=== PATIENT | female | born 1980 | race Hispanic/Latino ===

== ENCOUNTER → 2018-03-30 | Outpatient (CLI) | payer BC ==
[~2018-03-30] VITALS: Ht 7.6 cm; Wt 110.2 kg
--- NOTE | 2018-03-30 11:36 | NUR ---
Bariatric Nutrition Consult: Visit 1/3: Pt seeking nutrition guidance for wt loss surgery to increase quality of life and increase energy levels. Pt reports no medical history however states she takes metformin- DM medication. Pt believes wt loss surgery will help her finally reach her health goal as it will force her to eat less promoting wt loss. Pt reports high sugar intake-on a daily basis. RD has emphasized the importance to begin eating less sugar in preparation to surgery. Pt did become emotional when RD encouraged her to stop eating cookies and brownies however verbalized understanding and will begin transitioning her eating habits starting with half potions of her usual sweats intake. Pt reports liking vegetables at all meals however rarely eats them as her family does not like vegetables. RD has encouraged pt to buy frozen vegetables to cook for herself while setting the example for her family to eventually eat them. 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 However pt states her daughter are asleep by 7pm and she will begin walking her [place] dog to begin incorporating exercise to her daily activity. Pt states she is unable to go to a gym facility as she has to go home to her children. Pt's 24hr Food Recal shows poor diet balance with no vegetable intake and high sugar intake. Major food groups has been reviewed with pt and RD has encouraged pt to begin preparing her meals with lean to low fat protein, continued with vegetables and garnish with a starch. Pt has been advised about being aware of calories in her drink. Pt has been encouraged to consume breakfast even on her busy days-protein shakes have been given as options. Pt has set 3 goals to work on for this coming month to review in follow up visit with RD: 1) Drink less sugary drinks. 2) More protein intake and less fat intake. 3) Start walking the dog for exercise. RD contact information has been provided for additional nutrition questions or concerns pt may have. Addendum: 03/30/18 at [address] RD Amended: Links added.
== END | disposition home or self-care (01) ==
LOC: DTH 08:52
PROVIDERS: ATTEND Surgery
DX: E11.9 Type 2 diabetes mellitus without complications (principal); E66.09 Other obesity due to excess calories
CPT/HCPCS: 97802

== ENCOUNTER 2018-04-18 06:59 | Day surgery (SDC) | payer BC ==
[2018-04-18] VITALS (9 sets, daily range): BP systolic 87–135; BP diastolic 49–98
[~2018-04-18] VITALS: Ht 160 cm; Wt 110.0 kg
[~2018-04-18 06:59] MED LIST: SODIUM CHLORIDE 0.9% 1000ML 1,000 ML IV ONE
[2018-04-18] MEDS ORDERED: SODIUM CHLORIDE 0.9% 1000ML 1,000 ML IV SCH (08:15)
[2018-04-18] MEDS ORDERED: PROPOFOL 10 MG/ML 20ML VIAL IV ONE (08:28)
== END 2018-04-18 09:20 | disposition home or self-care (01) ==
LOC: DAH 06:59 → ENDO 06:59
PROVIDERS: ATTEND Surgery
DX: K21.9 Gastro-esophageal reflux disease without esophagitis (principal); Z98.890 Other specified postprocedural states; Z68.41 Body mass index [BMI] 40.0-44.9, adult; E66.01 Morbid (severe) obesity due to excess calories
CPT/HCPCS: 36415; 43235; 84703; J2704; J7030

== ENCOUNTER → 2018-04-27 | Outpatient (CLI) | payer BC ==
--- NOTE | 2018-04-27 11:15 | NUR ---
Bariatric Nutrition Consult: Visit 2/3: Pt with partially met goals she set herself previous month. Pt has reduced the amount of [employer] coffee and soda she used to drink. However, pt has substituted drinks for plain coffee with half&half plus 5 packets regular sugar and sweet tea. Pt has verbalized understanding sugar must be removed and will continue to work on dietary changes. Pt also began walking her dog after her twin daughters would fall asleep, however due to weather she has not done so in the past week. Pt has not met goal of starting protein shakes, and has started skipping breakfast. RD continues to encourage pt to drink ready to drink protein shakes in substitute for breakfast as she has a busy morning. RD has reviewed pt's 24hr hour food recall with pt and RD continues to encourage vegetable consumption. Pt verbalize she has attempted to increase vegetable intake in the past month however continues to find it difficult as coworkers prefer to eat in fast food restaurants with no vegetable options such as [employer] Addendum: 04/27/18 at [address] RD Amended: Links added. Addendum: 04/27/18 at [address] RD Continuation of previous note: CAMRYN has provided pt with printed materials on Protein Content of Foods and reviewed options of high quality protein to consume during meal times and snacking. Pt with no questions. CAMRYN has also provided pt with coupons for Protein Supplements to buy and consume for increased protein intake. Pt states she will buy protein shakes today and begin drinking them tomorrow. Pt has set three goals to work on in the following month and review with RD in follow up visit. 1) Drink protein shakes for breakfast. 2) Eat healthy snacks after dinner to satisfy sweet craving such as fruit, nuts, cottage cheese and wine. RD has encouraged pt to only have half a glass of wine (2-3oz) a week if she decides to have wine as alcohol is not recommended post surgery. Pt has verbalized understanding. 3) Exercise 2-3x/wk.
== END | disposition home or self-care (01) ==
LOC: DTH 09:42
PROVIDERS: ATTEND Surgery
DX: E11.9 Type 2 diabetes mellitus without complications (principal); E66.09 Other obesity due to excess calories
CPT/HCPCS: 97803

== ENCOUNTER → 2018-05-18 | Outpatient (CLI) | payer BC ==
--- NOTE | 2018-05-18 09:00 | NUR ---
Bariatric Nutrition Consult: Visit 04/10: Pt demonstrating high motivation as she knew there were positive changes in her personal/health life as she worked on her goals this past month. Pt has started drinking protein shakes and incorporating breakfast to her daily routine and she has noticed an increase of energy which have also helped her with getting herself to the gym to do spin class twice a week and workout videos at home twice a week. However pt also reports slight disappointment in where she would liked to have seen more weight come off. RD has reassured pt that small steps last retirement when done right and the progress she has made now is highly significant. Pt has reassured medical team she is ready for a lifestyle change such as the one Bariatric Surgery requires. Pt verbalize understanding. Pt's 24hour recall reflect dietary changes pt reported such as reducing starch intake and water intake. RD has reviewed "Eat Right With Less Sugar" and "Power Up With Breakfast" with pt for added tips on how to continue incorporating breakfast on the daily and to continue encouraging pt to reduce sugar intake in every meal. Pt reports understanding importance of both and had no nutritional questions. Pt continues to set new goals to continue working on and has been encourage to contact RD during office hours if nutritional concerns arise: 1) keep staying away from foods high in sugar. 2) exercise at least 3x/wk. 3) Eat more vegetables. Addendum: 05/18/18 at [address] RD Amended: Links added.
== END | disposition home or self-care (01) ==
LOC: DTH 08:53
PROVIDERS: ATTEND Surgery
DX: E11.9 Type 2 diabetes mellitus without complications (principal); E66.09 Other obesity due to excess calories
CPT/HCPCS: 97803

== ENCOUNTER → 2018-07-22 | Outpatient (CLI) | payer BC ==
--- NOTE | 2018-07-22 16:29 | NUR ---
Pre Op Bariatric Education RD reviewed and discussed Pre- and Post-Op dietary recommendations with Pt. Pt obtained reference materials and handouts. CAMRYN reviewed handout with Pt. RD answered all of Pt questions. Pt verbalized understanding. RD to follow up Post-Op. Addendum: 07/22/18 at [address] RD Amended: Links added.
== END | disposition home or self-care (01) ==
LOC: DTH 15:53
PROVIDERS: ATTEND Surgery
DX: E66.09 Other obesity due to excess calories (principal); E11.9 Type 2 diabetes mellitus without complications
CPT/HCPCS: 97803

== ENCOUNTER → 2018-07-27 | Outpatient (CLI) | payer BC ==
[~2018-07-27] VITALS: Ht 162.6 cm; Wt 109.7 kg
[~2018-07-27] MED LIST changes: +CEFAZOLIN SODIUM 1 GM VIAL IVP ONE; -SODIUM CHLORIDE 0.9% 1000ML 1,000 ML IV ONE
[2018-07-27 17:02] LABS: BASOPHILS % (AUTO) 0.8 % (0.0-5.0); EOSINOPHILS % (AUTO) 2.1 % (0.0-8.0); HEMATOCRIT 37.9 % (36-48); MEAN CORPUSCULAR HEMOGLOBIN 30.3 pg (27.0-33.0); MEAN CORPUSCULAR HGB CONC 34.9 g/dL (32.0-36.0); MEAN CORPUSCULAR VOLUME 86.7 fL (79-99); MONOCYTES % (AUTO) 6.2 % (3.0-13.0); NEUTROPHILS % (AUTO) 64.9 % (40.0-77.0); PLATELET COUNT (AUTO) 268 K/uL (130-400); RED BLOOD CELL COUNT(AUTO) 4.38 MIL/uL (4.00-5.50); RED CELL DISTRIBUTION WIDTH 12.9 % (11.0-15.5)
[2018-07-27 17:10] LABS: CREATININE 0.5 mg/dL (0.5-1.5); POTASSIUM 3.5 mmol/L (3.5-5.1)
[2018-07-27 17:12] LABS: INR 1.02 (0.85-1.15); PARTIAL THROMBOPLASTIN TIME 28.6 SEC (26.3-35.5); PROTHROMBIN TIME 10.7 SEC (9.6-11.6)
[2018-07-27 17:22] VITALS: BP 144/81
--- NOTE | 2018-07-27 17:30 | NUR ---
PATIENT LEFT PATIENT STATED SHE HAD TO LEAVE TO [employer] HER KIDS AND SHE WILL RETURN TOMORROW AROUND 4PM TO COMPLETE PRE-OP INTERVIEW.
[2018-07-29 20:03] VITALS: BP 141/77
== END | disposition home or self-care (01) ==
LOC: DAH 10:00 → EDSTATUS 12:30
PROVIDERS: ATTEND Surgery
DX: Z01.818 Encounter for other preprocedural examination (principal); E66.01 Morbid (severe) obesity due to excess calories; E11.9 Type 2 diabetes mellitus without complications; Z68.41 Body mass index [BMI] 40.0-44.9, adult
CPT/HCPCS: 36415; 80048; 84703; 85025; 85610; 85730; 86850; 86900; 86901

== ENCOUNTER 2023-12-27 09:25 | Emergency (ER) | payer BC ==
[~2023-12-27] VITALS: Ht 160 cm; Wt 76.7 kg
[2023-12-27] MEDS: ondanSETRON 4MG INJ IVP ONE (09:45)
[2023-12-27] MEDS: 0.9%NACL 1000ML 1,000 ML IV ONE (09:45)
[2023-12-27 09:47] LABS: BASOPHILS # (AUTO) 0.04 K/uL (0.00-0.20); BASOPHILS % (AUTO) 0.5 % (0.0-5.0); EOSINOPHILS # (AUTO) 0.14 K/uL (0.00-0.70); EOSINOPHILS % (AUTO) 1.9 % (0.0-8.0); HEMATOCRIT 38.3 % (36-48); IMMATURE GRANULOCYTE ABSOLUTE 0.01 K/uL (0-1); LYMPHOCYTES # (AUTO) 1.5 K/uL (1.0-4.8); MEAN CORPUSCULAR HEMOGLOBIN 27.9 pg (27.0-33.0); MEAN CORPUSCULAR HGB CONC 33.2 g/dL (32.0-36.0); MEAN CORPUSCULAR VOLUME 84.2 fL (79-99); MONOCYTES # (AUTO) 0.6 K/uL (0.1-1.0); NEUTROPHILS # (AUTO) 5.1 K/uL (1.8-7.7); NEUTROPHILS % (AUTO) 69.5 % (40.0-77.0); PLATELET COUNT (AUTO) 230 K/uL (130-400); RED BLOOD CELL COUNT(AUTO) 4.55 MIL/uL (4.00-5.50); RED CELL DISTRIBUTION WIDTH 13.1 % (11.0-15.5); WHITE BLOOD COUNT (AUTO) 7.4 K/uL (4.8-10.8)
--- NOTE | 2023-12-27 09:47 | ERN ---
ED Note History of Present Illness Stated Complaint: EPIGASTRIC PAIN, N/V Chief Complaint: Abdominal Pain Time Seen by MD: 09:29 Dictation: 43-year-old female who presents to the ED for evaluation of epigastric pain onset 4 days ago. Patient reports nausea, vomiting, but denies any other associated symptoms at this time. Patient reports pain worsens when she eats. Allergies: Coded Allergies: No Known Drug Allergies (Unverified Allergy, Unknown, 04/18/18) Home Meds No Active Prescriptions or Reported Meds Past Medical History Past Medical History: No Pertinent History Surgical History: Other, Surgical History Other: GASTRIC SLEEVE 2019 LMP: Dec 16, 2023 Review of System Dictation Constitutional: Negative for fever,chills, and weight loss Eyes: Negative for injury, pain,redness, and discharge ENT: Negative for injury,pain or swelling Cardiovascular: Negative for chest pain, palpitations, and edema Respiratory: Negative for shortness of breath, cough, and wheezing, Abdomen/GI: Positive for abdominal pain, nausea, vomiting noted for diarrhea, and constipation Back: Negative for injury and pain : Negative for injury, bleeding and discharge MS/Extremity: Negative for injury and deformity Skin: Negative for rash, and discoloration Neuro: Negative for headache, weakness, numbness, tingling, and seizure Psych: Negative for suicide ideation, homicidal ideation, and hallucinations Initial Vital Sign VS Vital Signs Date Time Temp Pulse Resp B/P (MAP) Pulse Ox O2 Delivery O2 Flow Rate FiO2 12/27/23 09:26 99.0 92 16 125/83 97 Room Air 0 12/27/23 09:39 21 Physical Exam Dictation General: awake, alert, NAD Head/Face: Normocephalic, atraumatic Eyes: PERRL, EOMI, vision at baseline ENT: oral cavity clear, TMs clear, no signs of infection Neck: Trachea midline, supple, no nuchal rigidity Cardiovascular: RRR, normal S1/S2, No MRGs, no JVD Respiratory: CTAB, no respiratory distress, No rales or wheezes Abdomen: Soft, non-tender, non-distended, normal bowel sounds, no guarding or rebound. Skin: Warm, dry, normal turgor, no rash MS/Extremity: Pulses equal, no cyanosis, neurovascular intact, FROM Neuro: COAx4, GCS 15, strength 5/5, CN 2-12 intact, normal cerebellar exam, normal gait, Psych: Normal behavior, mood, and affect normal Results (Laboratory/Radiology) Laboratory/Radiology Laboratory Tests Test 12/27/23 09:38 White Blood Count 7.4 K/uL (4.8-10.8) Red Blood Count 4.55 MIL/uL (4.00-5.50) Hemoglobin 12.7 g/dL (12.0-16.0) Hematocrit 38.3 % (36-48) Mean Corpuscular Volume 84.2 fL (79-99) Mean Corpuscular Hemoglobin 27.9 pg (27.0-33.0) Mean Corpuscular Hemoglobin Concent 33.2 g/dL (32.0-36.0) Red Cell Distribution Width 13.1 % (11.0-15.5) Platelet Count 230 K/uL (130-400) Mean Platelet Volume 9.9 fL (7.5-10.5) Immature Granulocyte % (Auto) 0.1 % (0-1) Neutrophils (%) (Auto) 69.5 % (40.0-77.0) Lymphocytes (%) (Auto) 20.0 % (21.0-51.0) L Monocytes (%) (Auto) 8.0 % (3.0-13.0) Eosinophils (%) (Auto) 1.9 % (0.0-8.0) Basophils (%) (Auto) 0.5 % (0.0-5.0) Neutrophils # (Auto) 5.1 K/uL (1.8-7.7) Lymphocytes # (Auto) 1.5 K/uL (1.0-4.8) Monocytes # (Auto) 0.6 K/uL (0.1-1.0) Eosinophils # (Auto) 0.14 K/uL (0.00-0.70) Basophils # (Auto) 0.04 K/uL (0.00-0.20) Absolute Immature Granulocyte (auto 0.01 K/uL (0-1) Nucleated Red Blood Cells 0.0 % (0.0-0.19) Urine Color COLORLESS (YELLOW) Urine Appearance CLEAR (CLEAR) Urine pH 6.5 (5.0-8.0) Urine Specific [place] 1.003 (1.001-1.031) Urine Protein NEGATIVE mg/dL (NEGATIVE) Urine Glucose (UA) NEGATIVE mg/dL (NEGATIVE) Urine Ketones NEGATIVE mg/dL (NEGATIVE) Urine Occult Blood NEGATIVE (NEGATIVE) Urine Nitrate NEGATIVE (NEGATIVE) Urine Bilirubin NEGATIVE mg/dL (NEGATIVE) Urine Urobilinogen 0.2 mg/dL (0.2-1.0) Urine Leukocyte Esterase NEGATIVE Curt/uL Urine RBC 0-1 /HPF (0-1) Urine WBC 0-1 /HPF (0-1) Urine Squamous Epithelial Cells RARE /HPF (0-2) Urine Bacteria RARE /HPF (None Seen) Urine Other Casts 1 /LPF (None Seen) Urine HCG, Qualitative NEGATIVE (NEGATIVE) Sodium Level 137 mmol/L (136-145) Potassium Level 3.4 mmol/L (3.5-5.1) L Chloride Level 100 mmol/L (101-111) L Carbon Dioxide Level 33 mmol/L (21-32) H Blood Urea Nitrogen 6 mg/dL (7-18) L Creatinine 0.7 mg/dL (0.5-1.0) Glomerular Filtration Rate Calc 111 mL/min (>90) Random Glucose 87 mg/dL (70-105) Total Calcium 9.2 mg/dL (8.5-10.1) Total Bilirubin 0.7 mg/dL (0.2-1.0) Direct Bilirubin 0.1 mg/dL (0.0-0.3) Aspartate Amino Transf (AST/SGOT) 16 U/L (10-37) Alanine Aminotransferase (ALT/SGPT) 18 U/L (12-78) Alkaline Phosphatase 58 U/L (50-136) Total Protein 7.9 g/dL (6.0-8.3) Albumin 3.8 g/dL (3.5-5.0) Lipase 40 U/L (16-77) Labs Reviewed?: Yes ED Course ED Course Orders Procedure Category Date Status Time Basic Metabolic Panel LAB 12/27/23 Complete Cbc With Differential LAB 12/27/23 Complete Hepatic Function Panel LAB 12/27/23 Complete Lipase LAB 12/27/23 Complete ,Urine Test LAB 12/27/23 Complete Urinalysis Profile LAB 12/27/23 Complete Ondansetron 4mg Inj PHA 11/18/24 Complete (Zofran 4mg Inj) 10:00 0.9%Nacl 1000ml (Ns PHA 12/27/23 Complete 1000ml) 10:00 Ct Abd/Pel Wo Con CT 12/27/23 Resulted Renal/Appy 10:11 Morphine 4mg Syg PHA 12/27/23 Complete (Morphine 4mg Syg) 12:00 Current Medications Medications (Trade) Dose Ordered Sig/Piero Route PRN Reason Start Time Stop Time Status Last Admin Dose Admin Morphine Sulfate (morPHINE 4MG SYG) 4 mg ONCE ONCE IVP 12/27/23 12:00 12/27/23 12:01 DC 12/27/23 11:59 Ondansetron HCl (zoFRAN 4MG INJ) 4 mg ONCE ONCE IVP 12/27/23 10:00 12/27/23 10:01 DC 12/27/23 09:45 Sodium Chloride 1,000 ml @ 0 mls/hr ONCE ONCE IV 12/27/23 10:00 12/27/23 10:01 DC 12/27/23 09:45 Vital Signs Date Time Temp Pulse Resp B/P (MAP) Pulse Ox O2 Delivery O2 Flow Rate FiO2 12/27/23 09:39 98.8 86 18 118/80 98 Room Air* 0 21 12/27/23 09:26 99.0 92 16 125/83 97 Room Air 0 Medical Decision Making MDM MDM: Differential diagnosis: Epigastric pain, vomiting, gastroenteritis Previous outside records reviewed: Old ER visits. Need for hospitalization: Patient does not meet criteria for hospitalization. Need for emergency major/minor surgery: No Patient's prior external medical records from other ER visits were reviewed by me as indicated. Prior testing and results from previous visits were reviewed. Prior tests were taken into account with medical decision making and resource utilization, independent historian/historians were used to obtain complete medical history. I independently interpreted the test that were performed, results were reviewed by me and considered findings on radiology if ordered. Medical management and examination interpretation discussions were had by me with other qualified healthcare professionals as indicated for the patient's care. DX & DISP Disposition: Discharge Departure Impression: Primary Impression: Acute epigastric pain Condition: Stable Scripts Dicyclomine HCl (Bentyl) 20 Mg Tab 1 TAB PO BID for irritable bowel symptoms for 10 Days, #20 TAB 0 Refills Prov: CASSIE GONZALEZ MD 12/27/23 Ondansetron (Ondansetron Odt) 4 Mg Tab.rapdis 1 TAB PO Q6HPRN PRN for nausea/vomiting for 3 Days, #12 TAB 0 Refills Prov: CASSIE GONZALEZ MD 12/27/23 Referrals: FÁTIMA GARCÍA (PCP) I have reviewed, & agreed with my scribe's, documentation. (Entered by Osito Bermudez, acting as a scribe for Dr. Gonzalez) I personally scribed for CASSIE GONZALEZ MD ([email or web address]) on 12/27/23 at 09:47. Electronically submitted by Osito Bermudez ([email or web address]). I personally scribed for CASSIE GONZALEZ MD (DRGUADCH) on 12/27/23 at 10:22. Electronically submitted by Osito Bermudez ([email or web address]). CASSIE GONZALEZ MD Dec 27, 2023 09:47
[2023-12-27 09:48] LABS: APPEARANCE,URINE CLEAR (CLEAR); BILIRUBIN,URINE NEGATIVE (NEGATIVE); COLOR,URINE COLORLESS (YELLOW); GLUCOSE, URINE (UA) NEGATIVE (NEGATIVE); KETONES,URINE NEGATIVE (NEGATIVE); LEUKOCYTE ESTERASE ,URINE NEGATIVE Leu/uL (NEGATIVE); NITRATE,URINE NEGATIVE (NEGATIVE); OCCULT BLOOD,URINE NEGATIVE (NEGATIVE); PH,URINE 6.5 (5.0-8.0); PROTEIN,URINE NEGATIVE (NEGATIVE); UROBILINOGEN,URINE 0.2 mg/dL (0.2-1.0)
[2023-12-27 09:52] LABS: HCG,QUALITATIVE URINE NEGATIVE (NEGATIVE)
[2023-12-27 10:00] LABS: ADD UA MICROSCOPIC YES
[2023-12-27 10:06] LABS: CREATININE 0.7 mg/dL (0.5-1.0); POTASSIUM 3.4 mmol/L (3.5-5.1)
[2023-12-27 10:10] LABS: ALBUMIN 3.8 g/dL (3.5-5.0); BILIRUBIN,DIRECT 0.1 mg/dL (0.0-0.3); BILIRUBIN,TOTAL 0.7 mg/dL (0.2-1.0); TOTAL PROTEIN, SERUM 7.9 g/dL (6.0-8.3)
[2023-12-27 10:23] LABS: BACTERIA,URINE RARE /HPF (None Seen); OTHER CASTS, URINE 1 /LPF (None Seen); RBC,URINE 0-1 /HPF (0-1); SQUAMOUS EPITHELIAL CELL,UR RARE /HPF (0-2); WBC,URINE 0-1 /HPF (0-1)
--- NOTE | 2023-12-27 10:42 | HMCIMG ---
CT ABD/PEL WO CON RENAL/APPY HISTORY: Nausea and vomiting COMPARISON: 08/23/2018 TECHNIQUE: Multiple sequential axial images of the abdomen and pelvis were obtained from the dome of the diaphragm through symphysis pubis. Patient was not given contrast through intravenous route. Oral contrast was not given. FINDINGS: No pleural effusion is seen bilaterally. There is no evidence of parenchymal disease or pulmonary nodule of the visualized lower lungs. Degenerative changes of the thoracolumbar spine are present. The heart is not enlarged. Liver is enlarged measuring 17.2 cm. Gallstones are seen in the gallbladder. Post gastric bypass surgical changes are seen. The liver, spleen, adrenal glands and pancreas are unremarkable. There is no evidence of hydronephrosis bilaterally. No evidence of renal stone is seen. Fecal material is seen in the colon. There are normal size retroperitoneal and mesenteric lymph nodes. No ascites is seen. No CT evidence of acute appendicitis is seen. No bowel obstruction is seen. Pelvic sidewalls are symmetric bilaterally. Bladder is moderately distended. IMPRESSION: 1. All stones in the gallbladder. No bowel obstruction. No ascites. CT was performed with one or more following dose reduction techniques: automated exposure control, adjustment of the mA and kv according to patient's size, or use of a iterative reconstruction technique.
[2023-12-27] MEDS: morPHINE 4 MG SYG IVP ONE (11:59)
[2023-12-27] MEDS ORDERED: ONDA-243 PO (12:32)
[2023-12-27] MEDS ORDERED: DICY20TA2 PO (12:32)
[2023-12-27 12:40] VITALS: BP 118/75; PULSE 73; RESP 18; TEMP 98.8; O2SAT 97
== END 2023-12-27 12:47 | disposition home or self-care (01) ==
LOC: EDH 09:25
DX: R10.13 Epigastric pain (principal); Z98.84 Bariatric surgery status
CPT/HCPCS: 99284; 74176; 96374; 96361; 96375; 80076; 80048; 83690; 85025; 81001; 81025; 36415; J7030; J2405; J2270